=== PATIENT | female | born 2000 | race Caucasian/White ===

== ENCOUNTER 2020-11-25 12:50 | Observation (INO) | payer OTHER ==
[~2020-11-25] VITALS: Ht 149.9 cm; Wt 98.6 kg
[2020-11-25 13:53] LABS: BASOPHILS % (AUTO) 0 % (0-1); EOSINOPHILS % (AUTO) 0 % (1-7); LYMPHOCYTES % (AUTO) 15 % (22-44); MEAN CORPUSCULAR HEMOGLOBIN 31.2 pg (27.0-34.8); MEAN CORPUSCULAR HGB CONC 34.8 g/dL (32.4-35.8); MONOCYTES % (AUTO) 9 % (2-9); NEUTROPHILS % (AUTO) 76 % (42-75); PLATELET COUNT 197 x10^3/uL (130-400); RED BLOOD COUNT 4.29 x10^6/uL (3.82-5.3); RED CELL DISTRIBUTION WIDTH 12.6 % (9.6-15.2)
[2020-11-25 13:59] LABS: MICROSCOPIC INDICATED
[2020-11-25 14:02] VITALS: BP 127/75
[2020-11-25 14:02] LABS: ALANINE AMINOTRANSFERASE 16 U/L (12-78); ALBUMIN 2.4 g/dL (3.4-5.0); ANION GAP 8 mmol/L (5-15); CALCIUM 8.9 mg/dL (8.5-10.1); CHLORIDE 108 mmol/L (98-107); CREATININE 0.48 mg/dL (0.55-1.02)
[2020-11-25 14:05] LABS: ALKALINE PHOSPHATASE 130 U/L (45-117); BILIRUBIN, DIRECT < 0.1 mg/dL (0.1-0.2); BILIRUBIN,TOTAL 0.4 mg/dL (0.2-1.0); TOTAL PROTEIN 6.6 g/dL (6.4-8.2)
[2020-11-25 14:08] LABS: AMPHETAMINE SCREEN, URINE Negative (Negative); BARBITURATE SCREEN, URINE Negative (Negative); BENZODIAZEPINE SCREEN, URINE Negative (Negative); CANNABINOID SCREEN, URINE Positive (Negative); COCAINE SCREEN, URINE Negative (Negative); METHADONE SCREEN, URINE Negative (Negative); OPIATE SCREEN, URINE Negative (Negative)
[2020-11-25 14:09] LABS: PROTEIN/CREATININE RATIO,URINE 1815 (0-200); TOTAL PROTEIN,URINE RANDOM 294 mg/dL (0-12)
[2020-11-25] MEDS ORDERED: ACETAMINOPHEN 325 MG TABLET ONE (16:58)
[2020-11-25] MEDS: ACETAMINOPHEN 325 MG TABLET PO PRN (17:02)
[2020-11-25] MEDS ORDERED: PLEASE ENTER WEIGHT MC SCH (17:30)
[2020-11-25] MEDS ORDERED: DOCUSATE 100 MG CAPSULE PO PRN (19:00)
[2020-11-25] MEDS ORDERED: FAMOTIDINE 20 MG TABLET ONE (19:16)
[2020-11-25] MEDS ORDERED: FAMOTIDINE 10 MG TAB PO ONE (19:30)
[2020-11-25] MEDS: NITROFURANTOIN (MACROBID) 100 MG CAPSULE PO SCH (19:48)
[2020-11-26] MEDS ORDERED: PRENATAL VIT/IRON/FA 1 EACH TABLET PO SCH (09:00)
[2020-11-26] MEDS: NITROFURANTOIN (MACROBID) 100 MG CAPSULE PO SCH ×2 (09:02→20:54)
[2020-11-26] MEDS: ACETAMINOPHEN 325 MG TABLET PO PRN (17:30)
[2020-11-26 17:45] LABS: BASOPHILS % (AUTO) 1 % (0-1); EOSINOPHILS % (AUTO) 0 % (1-7); LYMPHOCYTES % (AUTO) 19 % (22-44); MEAN CORPUSCULAR HEMOGLOBIN 31.4 pg (27.0-34.8); MEAN CORPUSCULAR HGB CONC 34.8 g/dL (32.4-35.8); MEAN PLATELET VOLUME 9.4 fL (7.4-10.4); MONOCYTES % (AUTO) 8 % (2-9); NEUTROPHILS % (AUTO) 72 % (42-75); PLATELET COUNT 188 x10^3/uL (130-400); RED BLOOD COUNT 4.17 x10^6/uL (3.82-5.3); RED CELL DISTRIBUTION WIDTH 12.7 % (9.6-15.2)
[2020-11-26 18:07] LABS: ALBUMIN 2.4 g/dL (3.4-5.0); ANION GAP 9 mmol/L (5-15); CALCIUM 8.7 mg/dL (8.5-10.1); CHLORIDE 103 mmol/L (98-107)
[2020-11-26 18:12] LABS: ALANINE AMINOTRANSFERASE 16 U/L (12-78); ALKALINE PHOSPHATASE 133 U/L (45-117); BILIRUBIN,TOTAL 0.4 mg/dL (0.2-1.0); CREATININE 0.59 mg/dL (0.55-1.02); TOTAL PROTEIN 6.5 g/dL (6.4-8.2)
[2020-11-26] MEDS ORDERED: FAMOTIDINE 20 MG TABLET ONE (19:20)
[2020-11-26] MEDS ORDERED: FAMOTIDINE 10 MG TAB PO ONE (19:30)
[2020-11-26] MEDS ORDERED: FAMOTIDINE 20 MG TABLET PO ONE (19:30)
[2020-11-28] MEDS ORDERED: PREN1TAB60 PO (10:04)
[2020-11-28] MEDS ORDERED: NITR100C56 PO (10:05)
[2020-11-28] MEDS ORDERED: PHEN99.5 PO (10:06)
== END 2020-11-27 00:16 | disposition home or self-care (01) ==
LOC: LDOP 12:50 → LDIP 15:55 → INTOOBSV 15:55 → LDIP 11-26 00:18
PROVIDERS: ADMIT Student in an Organized Health Care Education/Training Program; ATTEND Student in an Organized Health Care Education/Training Program
DX: O14.93 Unspecified pre-eclampsia, third trimester (principal); O26.893 Other specified pregnancy related conditions, third trimester; R03.0 Elevated blood-pressure reading, without diagnosis of hypertension; O99.891 Other specified diseases and conditions complicating pregnancy; M25.351 Other instability, right hip; O99.323 Drug use complicating pregnancy, third trimester; F12.90 Cannabis use, unspecified, uncomplicated; Z3A.36 36 weeks gestation of pregnancy; Z88.0 Allergy status to penicillin; Z79.899 Other long term (current) drug therapy
CPT/HCPCS: 36415; 59025; 76805; 80053; 80307; 81001; 82248; 82570; 84156; 84550; 85025; 86592; 86762; 86850; 86900; 87340; 87806; G0378; G0475

== ENCOUNTER 2020-11-28 09:46 | Outpatient (CLI) | payer OTHER ==
[~2020-11-28] VITALS: Ht 149.9 cm; Wt 98.6 kg
[2020-11-28] MEDS ORDERED: PREN1TAB60 PO (10:04)
[2020-11-28] MEDS ORDERED: NITR100C56 PO (10:05)
[2020-11-28] MEDS ORDERED: PHEN99.5 PO (10:06)
[2020-11-28 10:47] VITALS: BP 128/82
[2020-11-28 11:00] LABS: BASOPHILS % (AUTO) 1 % (0-1); EOSINOPHILS % (AUTO) 0 % (1-7); LYMPHOCYTES % (AUTO) 17 % (22-44); MEAN CORPUSCULAR HEMOGLOBIN 31.8 pg (27.0-34.8); MEAN CORPUSCULAR HGB CONC 35.3 g/dL (32.4-35.8); MEAN PLATELET VOLUME 8.9 fL (7.4-10.4); MONOCYTES % (AUTO) 10 % (2-9); NEUTROPHILS % (AUTO) 72 % (42-75); PLATELET COUNT 189 x10^3/uL (130-400); RED BLOOD COUNT 4.15 x10^6/uL (3.82-5.3); RED CELL DISTRIBUTION WIDTH 12.7 % (9.6-15.2)
[2020-11-28 11:07] LABS: ALANINE AMINOTRANSFERASE 14 U/L (12-78); ALBUMIN 2.4 g/dL (3.4-5.0); ANION GAP 3 mmol/L (5-15); CALCIUM 8.7 mg/dL (8.5-10.1); CHLORIDE 113 mmol/L (98-107); CREATININE 0.57 mg/dL (0.55-1.02)
[2020-11-28 11:08] LABS: AMPHETAMINE SCREEN, URINE Negative (Negative); BARBITURATE SCREEN, URINE Negative (Negative); BENZODIAZEPINE SCREEN, URINE Negative (Negative); CANNABINOID SCREEN, URINE Positive (Negative); COCAINE SCREEN, URINE Negative (Negative); METHADONE SCREEN, URINE Negative (Negative); OPIATE SCREEN, URINE Negative (Negative)
[2020-11-28 11:09] LABS: ALKALINE PHOSPHATASE 127 U/L (45-117); BILIRUBIN,TOTAL 0.4 mg/dL (0.2-1.0); TOTAL PROTEIN 6.2 g/dL (6.4-8.2)
== END 2020-11-28 11:57 | disposition home or self-care (01) ==
LOC: LDOP 09:46
PROVIDERS: ATTEND Student in an Organized Health Care Education/Training Program
DX: O16.3 Unspecified maternal hypertension, third trimester (principal); Z3A.37 37 weeks gestation of pregnancy
CPT/HCPCS: 36415; 59025; 80053; 80307; 83615; 84550; 85025

== ENCOUNTER 2020-11-29 08:03 | Inpatient (IN) | payer OTHER ==
[~2020-11-29] VITALS: Ht 154.9 cm; Wt 98.6 kg
[~2020-11-29 08:03] MED LIST: NITR100C56 PO; PHEN99.5 PO; PREN1TAB60 PO
[2020-11-29 14:08] VITALS: BP 142/94
[2020-11-29] MEDS ORDERED: NEWBORN KIT ONE (14:08)
[2020-11-29] MEDS ORDERED: METOCLOPRAMIDE 5 MG/ML, 2ML ONE (14:08)
[2020-11-29] MEDS ORDERED: SODIUM CITRATE/CITRIC ACID 15 ML UDC ONE (14:08)
[2020-11-29] MEDS ORDERED: OXYTOCIN 30U/ 0.9% NaCL 500ML 500 ML ONE (14:08)
[2020-11-29] MEDS ORDERED: PLEASE ENTER HEIGHT AND WEIGHT MC SCH (14:30)
[2020-11-29] MEDS ORDERED: METOCLOPRAMIDE 5 MG/ML, 2ML IV ONE (14:30)
[2020-11-29] MEDS ORDERED: LACTATED RINGERS 1,000 ML IVBOLUS ONE (14:30)
[2020-11-29] MEDS ORDERED: SODIUM CITRATE/CITRIC ACID 30 ML UDC PO ONE (14:30)
[2020-11-29 15:02] LABS: BASOPHILS % (AUTO) 0 % (0-1); EOSINOPHILS % (AUTO) 0 % (1-7); LYMPHOCYTES % (AUTO) 16 % (22-44); MEAN CORPUSCULAR HEMOGLOBIN 31.1 pg (27.0-34.8); MEAN CORPUSCULAR HGB CONC 34.6 g/dL (32.4-35.8); MEAN PLATELET VOLUME 8.6 fL (7.4-10.4); MONOCYTES % (AUTO) 9 % (2-9); NEUTROPHILS % (AUTO) 74 % (42-75); PLATELET COUNT 204 x10^3/uL (130-400); RED BLOOD COUNT 4.17 x10^6/uL (3.82-5.3); RED CELL DISTRIBUTION WIDTH 12.6 % (9.6-15.2)
[2020-11-29 15:29] LABS: ALANINE AMINOTRANSFERASE 16 U/L (12-78); ALBUMIN 2.6 g/dL (3.4-5.0); ANION GAP 8 mmol/L (5-15); CALCIUM 8.7 mg/dL (8.5-10.1); CHLORIDE 109 mmol/L (98-107); CREATININE 0.53 mg/dL (0.55-1.02)
[2020-11-29 15:31] LABS: ALKALINE PHOSPHATASE 137 U/L (45-117); BILIRUBIN,TOTAL 0.4 mg/dL (0.2-1.0); TOTAL PROTEIN 6.5 g/dL (6.4-8.2)
[2020-11-29] MEDS ORDERED: MAGNESIUM SULF. PMX 20GM/500ML 500 ML IV ONE (16:09)
[2020-11-29] MEDS ORDERED: morphine SULFATE/PF 1 MG/ML, 10ML ONE (16:56)
[2020-11-29] MEDS ORDERED: ONDANSETRON 2MG/ML, 2ML ONE (16:59)
[2020-11-29] MEDS ORDERED: CEFAZOLIN 1,000 MG ONE (16:59)
[2020-11-29] MEDS ORDERED: SODIUM CHLORIDE 0.9% PF 10ML ONE (16:59)
[2020-11-29] MEDS ORDERED: DEXAMETHASONE 4 MG/ML, 1ML ONE (16:59)
[2020-11-29] MEDS ORDERED: OXYTOCIN 10 UNITS/ML, 1ML ONE (16:59)
[2020-11-29] MEDS ORDERED: KETOROLAC 30 MG/1 ML ONE (16:59)
[2020-11-29] MEDS ORDERED: MIDAZOLAM 1 MG/ML, 2ML ONE (17:16)
[2020-11-29] MEDS ORDERED: BISACODYL 10 MG SUPP PR PRN (18:30)
[2020-11-29] MEDS ORDERED: MORPHINE SULFATE 4 MG/ML, 1ML IVPush PRN ×3 (18:30→22:00)
[2020-11-29] MEDS ORDERED: GLYCERIN ADULT SUPP PR PRN (18:30)
[2020-11-29] MEDS ORDERED: TRANEXAMIC ACID 100 MG/ML, 10ML IV ONE (18:30)
[2020-11-29] MEDS: KETOROLAC 30 MG/1 ML IV SCH (18:30)
[2020-11-29] MEDS ORDERED: TRANEXAMIC ACID 1,000 MG in SODIUM CHLORIDE 0.9% 100 ML IVPB ONE (18:30)
[2020-11-29] MEDS ORDERED: MISOPROSTOL 200 MCG TABLET PO PRN (18:30)
[2020-11-29] MEDS ORDERED: ONDANSETRON 2MG/ML, 2ML IV PRN (18:30)
[2020-11-29] MEDS: LACTATED RINGERS 1,000 ML IV SCH ×2 (18:30)
[2020-11-29] MEDS ORDERED: OXYcodone/APAP 5/325MG TABLET PO PRN (18:30)
[2020-11-29] MEDS ORDERED: CARBOPROST TROMETHAMINE 250 MCG/ML, 1ML IM PRN (18:30)
[2020-11-29] MEDS: OXYTOCIN 30U/ 0.9% NaCL 500ML 500 ML IV SCH (18:30)
[2020-11-29] MEDS ORDERED: METOCLOPRAMIDE 5 MG/ML, 2ML IV PRN (18:30)
[2020-11-29] MEDS ORDERED: morphine SULFATE 10 MG/ML, 1ML IM PRN (18:30)
[2020-11-29] MEDS: SIMETHICONE 80 MG CHEW TAB PO PRN (19:50)
[2020-11-29 20:25] VITALS: BP 155/94
[2020-11-29] MEDS ORDERED: ONDANSETRON 2MG/ML, 2ML IVPush PRN (21:30)
[2020-11-29] MEDS ORDERED: NO SEDATIVES, TRANQUILIZERS OR ANTIEMETICS XX SCH (21:30)
[2020-11-29] MEDS ORDERED: NALOXONE 0.4 MG/ML, 1ML IV PRN (21:30)
[2020-11-29] MEDS ORDERED: DIPHENHYDRAMINE 50 MG/ML, 1ML IV PRN ×2 (21:30→21:35)
[2020-11-29] MEDS ORDERED: EPHEDRINE 50 MG/ML, 1ML IVPush PRN (21:30)
[2020-11-29] MEDS: KETOROLAC 30 MG/1 ML IVPush SCH (23:28)
[2020-11-29] MEDS: OXYcodone/APAP 5/325MG TABLET PO PRN (23:30)
[2020-11-30] VITALS (7 sets, daily range): BP systolic 114–153; BP diastolic 72–101
[2020-11-30] MEDS: KETOROLAC 30 MG/1 ML IV SCH ×5 (00:30→18:30)
[2020-11-30 01:29] LABS: BASOPHILS % (AUTO) 0 % (0-1); EOSINOPHILS % (AUTO) 0 % (1-7); LYMPHOCYTES % (AUTO) 8 % (22-44); MEAN CORPUSCULAR HGB CONC 34.6 g/dL (32.4-35.8); MEAN PLATELET VOLUME 8.7 fL (7.4-10.4); MONOCYTES % (AUTO) 6 % (2-9); NEUTROPHILS % (AUTO) 86 % (42-75); PLATELET COUNT 194 x10^3/uL (130-400); RED CELL DISTRIBUTION WIDTH 12.6 % (9.6-15.2)
[2020-11-30] MEDS: LACTATED RINGERS 1,000 ML IV SCH ×2 (02:30→04:30)
[2020-11-30] MEDS: SIMETHICONE 80 MG CHEW TAB PO PRN ×3 (02:38→21:51)
[2020-11-30] MEDS: OXYTOCIN 30U/ 0.9% NaCL 500ML 500 ML IV SCH (04:30)
[2020-11-30] MEDS: KETOROLAC 30 MG/1 ML IVPush SCH ×2 (05:42→11:40)
[2020-11-30] MEDS: OXYcodone/APAP 5/325MG TABLET PO PRN ×2 (06:42→13:21)
[2020-11-30] MEDS: DOCUSATE 100 MG CAPSULE PO PRN ×2 (09:18→19:14)
[2020-11-30] MEDS: PRENATAL VIT/IRON/FA 1 EACH TABLET PO SCH (09:18)
[2020-11-30] MEDS: IBUPROFEN 600 MG TABLET PO PRN ×2 (17:40→23:27)
[2020-11-30] MEDS: OXYcodone IR 5MG TABLET PO PRN ×2 (19:14→23:28)
[2020-11-30] MEDS: ACETAMINOPHEN 325 MG TABLET PO PRN (19:14)
[2020-12-01 03:15] VITALS: BP 126/77
[2020-12-01] MEDS: ACETAMINOPHEN 325 MG TABLET PO PRN (03:36)
[2020-12-01] MEDS: OXYcodone IR 5MG TABLET PO PRN ×5 (03:37→22:09)
[2020-12-01] MEDS: IBUPROFEN 600 MG TABLET PO PRN ×3 (05:27→18:06)
[2020-12-01] MEDS: PRENATAL VIT/IRON/FA 1 EACH TABLET PO SCH (07:44)
[2020-12-01] MEDS: DOCUSATE 100 MG CAPSULE PO PRN ×2 (07:44→22:09)
[2020-12-01 07:50] VITALS: BP 130/87
[2020-12-01 19:55] VITALS: BP 135/86
[2020-12-01] MEDS ORDERED: MEASLES,MUMPS&RUBELLA VACC/PF 0.5 ML SQ-VACC ONE (20:30)
[2020-12-01] MEDS: SIMETHICONE 80 MG CHEW TAB PO PRN (22:09)
[2020-12-02] MEDS: IBUPROFEN 600 MG TABLET PO PRN ×2 (00:05→06:09)
[2020-12-02] MEDS: OXYcodone IR 5MG TABLET PO PRN ×3 (01:58→10:36)
[2020-12-02] MEDS: ACETAMINOPHEN 325 MG TABLET PO PRN (01:58)
[2020-12-02] MEDS ORDERED: OXYC1TAB14 PO (06:43)
[2020-12-02] MEDS ORDERED: IBUP-1222 PO (06:43)
[2020-12-02 08:10] VITALS: BP 133/87
[2020-12-02] MEDS: PRENATAL VIT/IRON/FA 1 EACH TABLET PO SCH (08:10)
[2020-12-02] MEDS: DOCUSATE 100 MG CAPSULE PO PRN (08:10)
[2020-12-02] MEDS ORDERED: HYDROCORTISONE CRM 1%, 30GM TP PRN (09:30)
== END 2020-12-02 10:50 | disposition home or self-care (01) | DRG 788 ==
LOC: LDIP 14:03 → 2NW 20:02
PROVIDERS: ADMIT Student in an Organized Health Care Education/Training Program; ATTEND Student in an Organized Health Care Education/Training Program
PROC: 10D00Z1 Extraction of Products of Conception, Low, Open Approach (ICD-10-PCS; principal; 2020-11-29)
DX: O99.324 Drug use complicating childbirth (principal); O14.94 Unspecified pre-eclampsia, complicating childbirth; F12.90 Cannabis use, unspecified, uncomplicated; M25.351 Other instability, right hip; Z20.822 Contact with and (suspected) exposure to COVID-19; Z37.0 Single live birth; Z3A.37 37 weeks gestation of pregnancy; Z88.0 Allergy status to penicillin; Z88.1 Allergy status to other antibiotic agents; Z28.29 Immunization not carried out because of patient decision for other reason
CPT/HCPCS: 36415; 80053; 85025; 86592; 86850; 86900; 87635; G0378; J0690; J1100; J1885; J2250; J2274; J2405; J2270; J2590; J2765; J7120